=== PATIENT | male | born 1945 | race Asian ===

== ENCOUNTER 2016-08-06 05:41 | Emergency (ER) | payer BC ==
[2016-08-06] MEDS: 0.9 % SODIUM CHLORIDE 1,000 ML IV ONE (05:50)
[2016-08-06] MEDS: ONDANSETRON HCL/PF 4 MG/ 2ML VIAL IVP ONE (05:50)
[2016-08-06 05:56] LABS: BASOPHILS % 0.2 (0.0-1.5); EOSINOPHILS % 0.1 % (0.0-6.8); LYMPHOCYTES # 1.2 # k/uL (0.6-4.0); MEAN CORPUSCULAR HEMOGLOBIN 32.5 pg (28.0-34.0); MONOCYTES # 0.2 # k/uL (0.0-0.9); MONOCYTES % 2.2 % (0.0-11.0); NEUTROPHILS # 10.1 # k/uL (1.4-7.7)
--- NOTE | 2016-08-06 05:56 | ED Physician Documentation ---
General Adult - HISTORIAN Historian: patient, child, other ([place] and history extremely limited because of language barrier. ) - HPI Stated Complaint: abdominal pain Chief Complaint: General Adult Additional Information: Didn't feel good yesterday so saw Malay doctor. Given unknown Chines medicine. Began nausea and vomiting four hours prior to arrival in ER. Has had this pain before. Family says he may have had cholecystectomy or may have only had stones removed. No diarrhea. [place] cold earlier when vomiting began. - ROS CONST: other (cold feelings earlier) - PAST HX Past History: other (unknown. cholecystectomy??) - SOCIAL HX Smoking History: non-smoker - FAMILY HX Family History: No (unknown) - REVIEWED ASSESSMENTS Nursing Assessment Reviewed: Yes Vitals Reviewed: Yes <ENRIQUE NOLAND - Last Filed: 08/06/16 06:44> - VITAL SIGNS Vital Signs: Vital Signs Temp Pulse Resp BP Pulse Ox 98.6 F 119 H 18 140/92 96 08/06/16 05:41 08/06/16 05:41 08/06/16 05:41 08/06/16 05:41 08/06/16 05:41 <Willian Beltran - Last Filed: 08/06/16 08:51> - PAST HX Allergies/Adverse Reactions: Allergies Allergy/AdvReac Type Severity Reaction Status Date / Time No Known Allergies Allergy Verified 08/06/16 05:57 Home Medications: Ambulatory Orders Medication Instructions Recorded NK [NK] 08/06/16 Progress - Results/Orders Results/Orders: ct reveals [place] obstruction sphincter of vaibhav there fore explaining the elevated amylase and abn lft's. pt denies htn dm or heart disease. he has had cholecystectomy Pt is krel asym now but still diaphoretic. both son and daughter are here now - able to converse w.s them-they both partially bilingual and w/ use of cell llphone gavi for different language communication. we exsplained need dto tnsf to [facility] for probable ERCP. they seem to understand and appreciate our care. pt will be transported by ambulance when we have acceptance. <Willian Beltran - Last Filed: 08/06/16 08:51> ED Results Lab/Radiology - Orders Orders: ED Orders Category Date Time Status Place Saline Lock/IV Now Care 08/06/16 05:44 Active AMYLASE Routine Lab 08/06/16 05:45 Received CBC/PLATELET/DIFF Routine Lab 08/06/16 05:45 Received CMP Routine Lab 08/06/16 05:45 Received URINALYSIS Routine Lab 08/06/16 Ordered 0.9 % Sodium Chloride [Normal Saline] 1,000 ml Med 08/06/16 05:43 Active IV Q1H Ondansetron HCl/Pf [Zofran 4 mg/2 ml] Med 08/06/16 05:44 Discontinued 4 mg IVP NOW ONE <ENRIQUE NOLAND - Last Filed: 08/06/16 06:44> - Lab Results Lab Results: Lab Results 08/06/16 08/06/16 05:45 05:45 WBC 11.60 K/ul K/ul (4.00-12.00) RBC 4.31 M/ul M/ul (3.90-5.20) Hgb 14.0 g/dL g/dL (12.0-18.0) Hct 40.9 % % (37.0-53.0) MCV 94.8 fl fl (80.0-100.0) MCH 32.5 pg pg (28.0-34.0) MCHC 34.3 g/dL g/dL (30.0-36.0) RDW 12.3 % % (11.3-14.3) Plt Count 167 K/mm3 K/mm3 (130-400) Neut % (Auto) 87.0 % H % (39.0-79.0) Lymph % (Auto) 10.3 % L % (16.0-50.0) Johnson % (Auto) 2.2 % % (0.0-11.0) Eos % (Auto) 0.1 % % (0.0-6.8) Baso % (Auto) 0.2 (0.0-1.5) Neut # 10.1 # k/uL H # k/uL (1.4-7.7) Lymph # 1.2 # k/uL # k/uL (0.6-4.0) Johnson # 0.2 # k/uL # k/uL (0.0-0.9) Eos # 0.0 # k/uL # k/uL (0.0-0.6) Baso # 0.0 # k/uL # k/uL (0.0-0.5) Reactive Lymphs % 0.4 % % (0.0-5.0) Reactive Lymphs # 0.0 # k/uL # k/uL (0.0-0.8) Sodium 138 mmol/L mmol/L (136-145) Potassium 3.4 mmol/L L mmol/L (3.5-5.0) Chloride 95 mmol/L L mmol/L (98-110) Carbon Dioxide 23 mmol/L mmol/L (20-32) BUN 15 mg/dL mg/dL (10-26) Creatinine 1.0 mg/dL mg/dL (0.4-1.5) Estimated Creat Clear 61 Est GFR ( Amer) > 60 (60 - ) Est GFR (Non-Af Amer) > 60 (60 - ) Glucose 140 mg/dL H mg/dL (70-99) Calcium 9.1 mg/dL mg/dL (8.5-10.5) Total Bilirubin 4.1 mg/dL H mg/dL (0.2-1.2) AST 129 U/L H U/L (0-41) ALT 166 U/L H U/L (0-45) Alkaline Phosphatase 298 U/L H U/L (46-116) Total Protein 8.0 g/dL g/dL (6.0-8.5) Albumin 4.4 g/dL g/dL (3.0-5.5) Amylase 3181 U/L H U/L (20-104) - Orders Orders: ED Orders Category Date Time Status Place Saline Lock/IV Now Care 08/06/16 05:[address] ABD W/O CONTRAST Stat Exams 08/06/16 Taken AMYLASE Routine Lab 08/06/16 05:45 Completed CBC/PLATELET/DIFF Routine Lab 08/06/16 05:45 Completed CMP Routine Lab 08/06/16 05:45 Completed HEPATITIS PANEL-ACUTE Stat Lab 08/06/16 05:45 Received URINALYSIS Routine Lab 08/06/16 Ordered 0.9 % Sodium Chloride [Normal Saline] 1,000 ml Med 08/06/16 05:43 Discontinued IV Q1H Ondansetron HCl/Pf [Zofran 4 mg/2 ml] Med 08/06/16 05:44 Discontinued 4 mg IVP NOW ONE <Willian Beltran - Last Filed: 08/06/16 08:51> General Adult Physical Exam - PHYSICAL EXAM GENERAL APPEARANCE: animated, talkative EENT: eye inspection normal, ENT inspection normal, pharynx normal (Mallampati 2 ) NECK: normal inspection, supple RESPIRATORY: no resp distress, chest non-tender, breath sounds normal CVS: reg rate & rhythm, heart sounds normal, no murmur ABDOMEN: soft, normal bowel sounds, no distension, non-tender RECTAL: deferred BACK: normal inspection, no CVA tenderness SKIN: warm/dry, normal color EXTREMITIES: normal range of motion, no evidence of injury NEURO: CN's nml as tested, motor nml, sensation nml, cognition normal <ENRIQUE NOLAND - Last Filed: 08/06/16 06:44> Discharge <ENRIQUE NOLAND - Last Filed: 08/06/16 06:44> Comments: [facility] dr patton Decision to Admit: [id number] Decision Time: 08:51 <Willian Beltran - Last Filed: 08/06/16 08:51> Clincal Impression: pancreatitis abn LFT'S, SPHINCTER OF ODDI STONE BLOCKAGE Home Medications: Ambulatory Orders NK [NK] 08/06/16 Condition: Good Disposition: 02 XFER [facility]
[2016-08-06 06:29] LABS: eGFR (African) > 60; eGFR (Non-African) > 60
--- NOTE | 2016-08-06 08:44 | Diagnostic Imaging Report ---
ENRIQUE NOLAND JESSICA [facility] [address] [facility] [address] [place], [place]. [address] Report Submission Date: Aug 06, 2016 7:41:02 AM CARPENTER Patient Study Name: BRYAN AMAYA Date: Aug 06, 2016 7:12:52 AM CARPENTER Modality Type: CT\SR Gender: M Description: CT ABD W/O CONTRAST : 45 Institution: [facility] Physician: ENRIQUE NOLAND CT Abdomen/pelvis without contrast History: LUQ PAIN, ELEVATED LIVER ENZYMES Multiple axial images of the abdomen and pelvis are submitted with reconstructions Findings: No comparison studies Motion artifact. Bibasilar atelectasis No free intraperitoneal air Mild cardiomegaly Intra and extrahepatic biliary dilatation, the common bile duct measures 1.8 cm , there is 1.2 x 2.1 cm oblong hyperdensity/ calculus in the distal common bile duct, and other 1.2 cm calculus is noted distal to this. Gallbladder is not seen. Lack of contrast limits evaluation Spleen is within normal limits. Both adrenal glands are nodular Bilateral perinephric fat stranding is present. There is no hydronephrosis bilaterally Atherosclerotic calcification of the aorta and its branches Prostatic calcification is present There is significant fat stranding around the pancreas The pancreatic duct is slightly dilated, findings are suggestive of acute pancreatitis, subcentimeter peripancreatic lymph nodes are present Stomach is collapsed, appendix is within normal limits. No bowel obstruction. 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 Further evaluation with MRCP recommended to evaluate the distal common bile duct for pathology. 2. Significant fat stranding around the pancreas with small amount of free fluid in the lesser sac suggestive of acute pancreatitis. Small prominent peripancreatic lymph nodes 3. No hydronephrosis. Prostatic calcification. Suggestion of bladder outlet obstruction. 4. Bibasilar atelectasis. 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
[2016-08-06 10:08] VITALS: BP 137/94
[2016-08-07 07:41] LABS: APPEARANCE,URINE CLEAR (CLEAR); COLOR,URINE AMBER (YELLOW); OCCULT BLOOD,URINE TRACE-INTACT (NEGATIVE); PH URINE 6.5 (5.0 - 8.0)
== END 2016-08-06 09:50 | disposition short-term general hospital (02) ==
LOC: ED 05:41
DX: K86.1 Other chronic pancreatitis (principal)
CPT/HCPCS: 74150; 80053; 80074; 81002; 82150; 85025; J2405; J7030; 96361; 96374; 99283; 99284; S1016